=== PATIENT | male | born 1955 | race Native Hawaiian/Other Pacific Islander ===

== ENCOUNTER → 2019-03-28 | Day surgery (SDC) | payer OTHER | LOC: OR 09:41 | PROC: 3E0T3BZ Introduction of Anesthetic Agent into Peripheral Nerves and Plexi, Percutaneous Approach (ICD-10-PCS; principal; 2019-03-28) | PROC: 3E0T33Z Introduction of Anti-inflammatory into Peripheral Nerves and Plexi, Percutaneous Approach (ICD-10-PCS; 2019-03-28) | DX: G58.8 Other specified mononeuropathies (principal); C79.51 Secondary malignant neoplasm of bone; R07.81 Pleurodynia | CPT/HCPCS: J1100; J2001 ==

== ENCOUNTER 2019-07-11 08:31 | Day surgery (SDC) | payer OTHER | END 2019-07-11 09:55 | disposition home or self-care (01) | LOC: OR 08:31 | PROC: 3E0R33Z Introduction of Anti-inflammatory into Spinal Canal, Percutaneous Approach (ICD-10-PCS; principal; 2019-07-11) | PROC: B01BYZZ Fluoroscopy of Spinal Cord using Other Contrast (ICD-10-PCS; 2019-07-11) | PROC: 3E0R3NZ Introduction of Analgesics, Hypnotics, Sedatives into Spinal Canal, Percutaneous Approach (ICD-10-PCS; 2019-07-11) | DX: M51.16 Intervertebral disc disorders with radiculopathy, lumbar region (principal) | CPT/HCPCS: J1020; J2270 ==